=== PATIENT | male | born 1935 | race Caucasian/White ===

== ENCOUNTER 2017-06-08 16:41 | Observation (INO) | payer OTHER, BC ==
[~2017-06-08] VITALS: Ht 180.3 cm; Wt 88.4 kg
[2017-06-08 17:44] LABS: HEMOGLOBIN 14.2 G/DL (12.5-16.6); MCH 30.5 PG (29.0-34.0); MCHC 34.6 G/DL (30.0-36.0); PLATELET COUNT 117 K/uL (156-360); RBC DIS.WIDTH-CV 14.6 % (11.8-14.6); RBC DIS.WIDTH-SD 46.6 % (39-53); RED BLOOD COUNT 4.66 M/uL (4.00-5.50); WHITE BLOOD COUNT 6.7 K/uL (4.1-10.2)
[2017-06-08 17:51] LABS: INTER. NORMALIZED RATIO 1.1
[2017-06-08 17:53] LABS: PTT 28.6 SEC (25-37)
[2017-06-08 17:56] LABS: CHLORIDE 104 mEq/L (99-109); SODIUM 140 mEq/L (136-147)
[2017-06-08 17:58] LABS: GLUCOSE 172 mg/dL (70-99)
[2017-06-08 18:02] LABS: CREATININE 1.2 mg/dL (0.6-1.3); GFR ESTIMATE (CALCULATED) > 59 mL/min/ (58.99-99999)
[2017-06-08 18:03] LABS: UREA NITROGEN (BUN) 15 mg/dL (9-23)
[2017-06-08 18:07] LABS: TROP-I INTERPRETATION NEGATIVE; TROPONIN-I < 0.01 ng/mL (0.0-0.30)
[2017-06-08] MEDS ORDERED: PROAIR HFA8.5 GM IH (20:32)
[2017-06-08] MEDS ORDERED: LEVOTHYROXINE137 MCG PO (20:33)
[2017-06-08] MEDS ORDERED: PRILOSEC20 MG PO (20:34)
[2017-06-08] MEDS ORDERED: METFORMIN HCL500 MG PO (20:34)
[2017-06-08] MEDS ORDERED: DAILY FIBER0.52 GM PO (20:35)
[2017-06-08] MEDS ORDERED: DULOXETINE HCL60 MG PO (20:36)
[2017-06-08] MEDS ORDERED: FUROSEMIDE20 MG PO (20:36)
[2017-06-08] MEDS ORDERED: FISH OIL 1,2001 EAC4 PO (20:37)
[2017-06-08] MEDS ORDERED: ISOSORBIDE DINI30 MG PO (20:39)
[2017-06-08] MEDS ORDERED: METOPROL PO (20:40)
[2017-06-08] MEDS ORDERED: VITAMIN D31000 UNI2 PO (20:41)
[2017-06-08] MEDS ORDERED: STOOL SOFTENER100 M1 PO (20:41)
[2017-06-08] MEDS ORDERED: CALCIUM-MAGNES1 EA10 PO (20:43)
[2017-06-08] MEDS ORDERED: VITAMIN B-12500 MC3 PO (20:45)
[2017-06-08] MEDS ORDERED: CRESTOR20 MG PO (20:46)
[2017-06-08] MEDS ORDERED: LO-DOSE ASPIRIN81 M2 PO (20:46)
[2017-06-08] MEDS ORDERED: MIRTAZAPINE15 MG PO (20:47)
[2017-06-08] MEDS ORDERED: SPIRIVA18 MCG IH (20:48)
[2017-06-08] MEDS ORDERED: GABAPENTIN100 MG PO (20:51)
[2017-06-08 21:48] VITALS: BP 136/69
[2017-06-09 00:42] LABS: INTER. NORMALIZED RATIO 1.1
[2017-06-09 01:01] LABS: TROP-I INTERPRETATION NEGATIVE; TROPONIN-I < 0.01 ng/mL (0.0-0.30)
[2017-06-09 04:25] VITALS: BP 136/75
[2017-06-09 06:02] LABS: TROP-I INTERPRETATION NEGATIVE; TROPONIN-I < 0.01 ng/mL (0.0-0.30)
[2017-06-09 06:19] LABS: HDL CHOLESTEROL 26 MG/DL (Desirable>=40); LDL CHOLESTEROL 48 mg/dL (Desirable<100); NON-HDL CHOLESTEROL 100 mg/dL (Desirable<160); TOTAL CHOLESTEROL 126 mg/dL (Desirable<200); TRIGLYCERIDES 259 MG/DL (Normal: <150)
[2017-06-09 06:50] LABS: Estimated Average Glucose 212 mg/dL (70-123)
[2017-06-09 07:35] VITALS: BP 109/62
== END 2017-06-09 12:26 | disposition home or self-care (01) ==
LOC: EME 16:41 → EDOF 19:39 → 5WEST 19:39 → ENRESERV 19:46 → 5WEST 21:32
PROVIDERS: Emergency Medicine; Hospitalist; Physician Assistant Medical
DX: R07.9 Chest pain, unspecified (principal); I25.10 Atherosclerotic heart disease of native coronary artery without angina pectoris; I25.2 Old myocardial infarction; Z95.5 Presence of coronary angioplasty implant and graft; R42 Dizziness and giddiness; G25.0 Essential tremor; J44.9 Chronic obstructive pulmonary disease, unspecified; Z99.81 Dependence on supplemental oxygen; E78.5 Hyperlipidemia, unspecified; G47.33 Obstructive sleep apnea (adult) (pediatric); E11.42 Type 2 diabetes mellitus with diabetic polyneuropathy; E53.8 Deficiency of other specified B group vitamins; I71.4 Abdominal aortic aneurysm, without rupture; Z85.850 Personal history of malignant neoplasm of thyroid; Z85.038 Personal history of other malignant neoplasm of large intestine; K21.9 Gastro-esophageal reflux disease without esophagitis; E89.0 Postprocedural hypothyroidism; I13.0 Hypertensive heart and chronic kidney disease with heart failure and stage 1 through stage 4 chronic kidney disease, or unspecified chronic kidney disease; R09.02 Hypoxemia; N18.3 Chronic kidney disease, stage 3 (moderate); I50.9 Heart failure, unspecified; E11.22 Type 2 diabetes mellitus with diabetic chronic kidney disease; E11.65 Type 2 diabetes mellitus with hyperglycemia; Z87.891 Personal history of nicotine dependence; Z90.49 Acquired absence of other specified parts of digestive tract; Z88.2 Allergy status to sulfonamides; Z88.5 Allergy status to narcotic agent
CPT/HCPCS: 71020; 80048; 80061; 82948; 83036; 84484; 85027; 85610; 85730; 93005; 94640; 94799; 99202; 99281; 99285; G0378; J1644; J1815